=== PATIENT | male | born 1990 | race Caucasian/White ===

== ENCOUNTER 2023-05-05 14:38 | Outpatient (CLI) | payer OTHER, SELFPAY ==
[2023-05-05 16:56] LABS: Alanine Aminotransferase 28 U/L (6-50); Albumin Level 4.7 g/dL (3.5-5.1); Alkaline Phosphatase 50 U/L (38-126); Anion Gap 11 mmol/L (8-16); Aspartate Amino Transferase 27 U/L (17-59); Blood Urea Nitrogen 18 mg/dL (9-20); Carbon Dioxide 26 mmol/L (22-30); Chloride 103 mmol/L (98-107); Cholesterol 167 mg/dL (0-200); Estimated Glomerular Filt Rate > 60; Glucose 109 mg/dL (65-110); HDL Direct 46 mg/dL; Potassium 4.8 mmol/L (3.4-5.0); Sodium 140 mmol/L (137-145); Triglycerides 61 mg/dL (<150)
[2023-05-05 17:03] LABS: Creatinine Urine 270.5 mg/dL
[2023-05-05 17:07] LABS: LDL Cholesterol Direct 110 mg/dL
[2023-05-05 17:08] LABS: Microalbumin Urine Random 13.5 mg/L (0-16.7)
[2023-05-05 17:11] LABS: Vitamin D 25 Hydroxy 46.3 ng/mL
[2023-05-05 17:25] LABS: Thyroid Stimulating Hormone 0.905 uIU/mL (0.465-4.680)
== END 2023-05-05 14:39 | disposition home or self-care (01) ==
LOC: ANHWCLAB 14:41
PROVIDERS: Visit Provider Internal Medicine Endocrinology, Diabetes & Metabolism
DX: E78.5 Hyperlipidemia, unspecified (principal); E55.9 Vitamin D deficiency, unspecified; E10.65 Type 1 diabetes mellitus with hyperglycemia
CPT/HCPCS: 36415; 80053; 80061; 82043; 82306; 82607; 84443